=== PATIENT | male | born 1950 | race African-American/Black ===

== ENCOUNTER → 2018-05-24 | Outpatient (CLI) | payer OTHER | LOC: CAT 10:33 | DX: Z13.6 Encounter for screening for cardiovascular disorders (principal); E78.00 Pure hypercholesterolemia, unspecified; I25.10 Atherosclerotic heart disease of native coronary artery without angina pectoris ==

== ENCOUNTER 2018-05-28 10:36 | Outpatient (CLI) | payer BC ==
[~2018-05-28] VITALS: Ht 170.2 cm; Wt 74.8 kg
[2018-05-28 12:25] VITALS: BP 160/77
[2018-05-28] MEDS ORDERED: AMLODIPINE BESY10 MG PO (13:06)
[2018-05-28] MEDS ORDERED: UNICOMPLEX M TA1 TA1 PO (13:07)
[2018-05-28] MEDS ORDERED: LIPITOR10 MG PO (13:07)
[2018-05-28] MEDS ORDERED: TRAMADOL 50 MG50 MG PO (13:08)
[2018-05-28] MEDS ORDERED: LIPITOR 20 MG T20 M1 PO (13:09)
[2018-05-28 16:30] VITALS: BP 119/73
[2018-05-28 17:00] VITALS: BP 133/54
--- NOTE | 2018-05-28 17:25 | NUR ---
ARRIVED TO FLOOR FROM IR S/P LEFT GROIN ANGIOGRAM FOR PLACEMENT OF STENTS. LEFT GROIN SITE SOFT/DRESSING WITH NO BLEEDING/NO PAIN. ON BEDREST UNTIL 183. HEAD OF BED ELEVATED. PLAN IS TO DISCHARGE HOME WHEN BEDREST IS COMPLETED.
[2018-05-28 17:30] VITALS: BP 141/65
[2018-05-28 18:00] VITALS: BP 141/62
[2018-05-28 18:30] VITALS: BP 133/62
--- NOTE | 2018-05-28 19:52 | NUR ---
NO BLEEDING TO LEFT GROIN SITE. PERIPHERAL PULSES 2+. BEDREST COMPLETED AT 1836. DISCHARGE INSTRUCTIONS GIVEN. DISMISSED AT 185. ESCORTED BY TRANSPORTER VIA TO FRONT ENTRANCE.
== END 2018-05-28 19:00 | disposition home or self-care (01) ==
LOC: 4W 10:36 → SPEC 10:36 → 4W 17:56 → SPEC 19:00
DX: I70.211 Atherosclerosis of native arteries of extremities with intermittent claudication, right leg (principal); I70.1 Atherosclerosis of renal artery; I10 Essential (primary) hypertension; I25.10 Atherosclerotic heart disease of native coronary artery without angina pectoris; I15.0 Renovascular hypertension; E78.00 Pure hypercholesterolemia, unspecified; Z82.49 Family history of ischemic heart disease and other diseases of the circulatory system; Z79.899 Other long term (current) drug therapy; Z98.890 Other specified postprocedural states
CPT/HCPCS: 10047

== ENCOUNTER → 2019-09-09 | Outpatient (CLI) | payer OTHER ==
[~2019-09-09] MED LIST: AMLODIPINE BESY10 MG PO; LIPITOR 20 MG T20 M1 PO; LIPITOR10 MG PO; TRAMADOL 50 MG50 MG PO; UNICOMPLEX M TA1 TA1 PO
== END ==
LOC: SJCVCIMAG 08:02
PROVIDERS: ATTEND Internal Medicine Cardiovascular Disease
DX: I73.9 Peripheral vascular disease, unspecified (principal); E78.00 Pure hypercholesterolemia, unspecified; Z87.891 Personal history of nicotine dependence

== ENCOUNTER → 2020-03-20 | Outpatient (CLI) | payer OTHER, MEDICARE | LOC: SJCVC 16:07 | PROVIDERS: ATTEND Internal Medicine Cardiovascular Disease | DX: I25.10 Atherosclerotic heart disease of native coronary artery without angina pectoris (principal); I10 Essential (primary) hypertension; E78.00 Pure hypercholesterolemia, unspecified; I73.9 Peripheral vascular disease, unspecified; I77.9 Disorder of arteries and arterioles, unspecified; R93.1 Abnormal findings on diagnostic imaging of heart and coronary circulation; Z87.891 Personal history of nicotine dependence; Z72.89 Other problems related to lifestyle; Z79.899 Other long term (current) drug therapy; Z79.82 Long term (current) use of aspirin ==

== ENCOUNTER → 2020-10-02 | Outpatient (CLI) | payer OTHER, MEDICARE | LOC: SJCVCIMAG 07:41 | PROVIDERS: ATTEND Nuclear Medicine Nuclear Cardiology | DX: R00.1 Bradycardia, unspecified (principal); I73.9 Peripheral vascular disease, unspecified; M79.605 Pain in left leg; M79.604 Pain in right leg; I77.9 Disorder of arteries and arterioles, unspecified; I25.10 Atherosclerotic heart disease of native coronary artery without angina pectoris; I10 Essential (primary) hypertension; E78.00 Pure hypercholesterolemia, unspecified; Z87.891 Personal history of nicotine dependence; E78.5 Hyperlipidemia, unspecified; Z72.89 Other problems related to lifestyle; Z79.899 Other long term (current) drug therapy; Z79.82 Long term (current) use of aspirin ==

== ENCOUNTER → 2021-04-17 | Outpatient (CLI) | payer OTHER, MEDICARE | LOC: SJCVCIMAG 13:21 | PROVIDERS: ATTEND Internal Medicine Cardiovascular Disease | DX: R94.31 Abnormal electrocardiogram [ECG] [EKG] (principal); I65.23 Occlusion and stenosis of bilateral carotid arteries; R00.1 Bradycardia, unspecified; I73.9 Peripheral vascular disease, unspecified; I77.9 Disorder of arteries and arterioles, unspecified; I25.10 Atherosclerotic heart disease of native coronary artery without angina pectoris; I10 Essential (primary) hypertension; E78.00 Pure hypercholesterolemia, unspecified; E78.5 Hyperlipidemia, unspecified; Z87.891 Personal history of nicotine dependence; Z72.89 Other problems related to lifestyle; Z79.82 Long term (current) use of aspirin; Z79.899 Other long term (current) drug therapy; Z82.49 Family history of ischemic heart disease and other diseases of the circulatory system ==